=== PATIENT | female | born 2000 | race Caucasian/White ===

== ENCOUNTER 2023-08-22 03:04 | Emergency (ER) | payer SELFPAY ==
[~2023-08-22] VITALS: Ht 154.9 cm; Wt 54.4 kg
[2023-08-22 03:14] VITALS: BP 118/60; TEMP 98.1
[2023-08-22 04:36] VITALS: O2SAT 97
== END 2023-08-22 04:37 | disposition home or self-care (01) ==
LOC: ER 03:06
DX: S20.412A Abrasion of left back wall of thorax, initial encounter (principal); F10.129 Alcohol abuse with intoxication, unspecified; W01.0XXA Fall on same level from slipping, tripping and stumbling without subsequent striking against object, initial encounter; Y93.89 Activity, other specified; Y92.89 Other specified places as the place of occurrence of the external cause; Y99.8 Other external cause status